=== PATIENT | female | born 1990 | race Hispanic/Latino ===

== ENCOUNTER 2018-06-17 16:23 | Emergency (ER) | payer BC ==
[2018-06-17 16:24] VITALS: BMI 34.2
[2018-06-17 16:31] VITALS: O2SAT 99
--- NOTE | 2018-06-17 16:35 | ED PDOC ---
HPI: Female Pain Time Seen by Provider: 06/17/18 16:28 Chief Complaint (Nursing): Female Genitourinary Chief Complaint (Provider): vaginal bleeding History Per: Patient Additional Complaint(s): sent from [facility] for miscarriage with heavy vaginal bleeding. at this time pt reports some cramping, denies chest pain or shortness of breath. Denies lightheadedness. Past Medical History Reviewed: Historical Data, Nursing Documentation, Vital Signs Vital Signs: Last Vital Signs Temp 98 F 06/17/18 16:28 Pulse 114 H 06/17/18 16:28 Resp 18 06/17/18 16:28 BP 95/69 L 06/17/18 16:28 Pulse Ox 99 06/17/18 16:28 - Medical History PMH: Anxiety Denies: Bipolar Disorder, Depression, Personality Disorder, Post Traumatic Stress Disorder, Schizophrenia - Family History Family History: States: No Known Family Hx - Immunization History Hx Tetanus Toxoid Vaccination: No Hx Influenza Vaccination: No Hx Pneumococcal Vaccination: No - Home Medications Home Medications: Ambulatory Orders Medication Instructions Recorded Cephalexin [Keflex] 500 mg PO Q12 7 Days #13 capsule 06/16/18 Multivit/Folic Acid/I 1 tab PO DAILY 06/16/18 [ Plus] Ibuprofen [Motrin Tab] 600 mg PO Q8 PRN #60 tab 06/17/18 - Allergies Allergies/Adverse Reactions: Allergies Allergy/AdvReac Type Severity Reaction Status Date / Time No Known Allergies Allergy Verified 06/17/18 11:22 Review of Systems Constitutional: Negative for: Weakness Cardiovascular: Negative for: Chest Pain, Light Headedness Respiratory: Negative for: Shortness of Breath Gastrointestinal: Positive for: Abdominal Pain Genitourinary Female: Positive for: Vaginal Bleeding, Pelvic Pain Psych: Positive for: Anxiety Physical Exam - Reviewed Nursing Documentation Reviewed: Yes Vital Signs Reviewed: Yes - Physical Exam Appears: Positive for: Non-toxic, No Acute Distress Head Exam: Positive for: ATRAUMATIC, NORMOCEPHALIC Skin: Positive for: Warm, Dry, Pallor Eye Exam: Positive for: EOMI, PERRL Gastrointestinal/Abdominal: Positive for: Soft. Negative for: Tenderness - ECG O2 Sat by Pulse Oximetry: 99 - Progress ED Course And Treament: 510p Evaluated by Dr Esquivel in ER, who giave pt rx for misoprostol. Pt to followup with Dr Bailey next week. Vitals normalizing in ER. Advised to continue rest and fluids. Disposition - Clinical Impression Clinical Impression: Miscarriage - Disposition Referrals: Temitope Bailey MD [Medical Doctor] - Disposition: Routine/Home Disposition Time: 17:10 Condition: STABLE Additional Instructions: TAKE MEDICATION PRESCRIBED RETURN TO ER FOR BLEEDING MORE THAN ONE PAD AN HOUR, SEVERE PAIN, FAINTING OR NEAR FAINTING, OR ANY OTHER WORRISOME SYMPTOMS Prescriptions: Ibuprofen [Motrin Tab] 600 mg PO Q8 PRN #60 tab PRN Reason: pain Instructions: Miscarriage (DC), Mifepristone and Misoprostol
--- NOTE | 2018-06-17 17:21 | CP.PCM.PN ---
Subjective - Date & Time of Evaluation Date of Evaluation: 06/17/18 Time of Evaluation: 17:20 - Subjective Subjective: Patient is a 27-year-old 1 para 06 weeks gestation presents to [facility] for evaluation evaluation of vaginal bleeding. Patient noted to be approximately 6 weeks on sonogram no heart rate activity sonographic findings consistent with subchorionic hemorrhage. Patient reports passing heavy clots denies palpitations reports some fatigue. 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 Objective - Vital Signs/Intake and Output Vital Signs (last 24 hours): Temp Pulse Resp BP Pulse Ox 98 F 114 H 18 95/69 L 99 06/17/18 16:28 06/17/18 16:28 06/17/18 16:28 06/17/18 16:28 06/17/18 16:35 - Medications Medications: Current Medications Dextrose/Sodium Chloride (Dextrose 5%-0.45% Ns 500 Ml) 500 mls @ 100 mls/hr IV .Q5H [place] Last Admin: 06/17/18 16:47 Dose: 100 mls/hr - Constitutional Appears: Well - Head Exam Head Exam: ATRAUMATIC - ENT Exam ENT Exam: Mucous Membranes Moist - Respiratory Exam Respiratory Exam: Clear to Ausculation Bilateral - Cardiovascular Exam Cardiovascular Exam: REGULAR RHYTHM - GI/Abdominal Exam GI & Abdominal Exam: Normal Bowel Sounds - Rectal Exam Rectal Exam: NORMAL INSPECTION - Exam Additional comments: Normal external female genitalia urethra several large clots noted at cervix and uterus anteverted uterine size 6 weeks vagina pink no cervical motion tenderness no adnexal masses - Neurological Exam Neurological Exam: Oriented x3 - Psychiatric Exam Psychiatric exam: Normal Affect - Skin Skin Exam: Normal Color Assessment and Plan - Assessment and Plan (Free Text) Assessment: Patient is a 27-year-old 1 para 0 with missed . We discussed medical management with misoprostol and 85% success rate with necessary follow- up at 1 week for repeat beta quant with PMD. The alternative was to go to the operating room today for suction D&C. We discussed the risks benefits and alternatives of each mode of therapy and after thorough discussion patient opted for medical management. Patient's wishes were respected patient instructed to follow-up with Dr. Bailey in 1 week
[2018-06-17 17:29] VITALS: BP 101/55; PULSE 102; RESP 16; TEMP 98.1
== END 2018-06-17 17:58 | disposition home or self-care (01) ==
LOC: H.ER 16:23
DX: O02.1 Missed abortion (principal); O99.341 Other mental disorders complicating pregnancy, first trimester; Z3A.01 Less than 8 weeks gestation of pregnancy